=== PATIENT | female | born 1960 | race African-American/Black ===

== ENCOUNTER 2017-09-24 15:49 | Emergency (ER) | payer MEDICARE ==
[~2017-09-24] VITALS: Ht 162.6 cm; Wt 90.0 kg
[2017-09-24] MEDS ORDERED: NAPROXEN 500MG TABLET PO ONE (19:15)
[2017-09-24] MEDS ORDERED: KETOROLAC 30MG/ML VIAL IM ONE (20:15)
[2017-09-24 20:42] VITALS: BP 129/99
== END 2017-09-24 20:41 | disposition home or self-care (01) ==
LOC: ER 16:21
DX: G89.29 Other chronic pain (principal); M54.5 Low back pain; I10 Essential (primary) hypertension; F31.9 Bipolar disorder, unspecified
CPT/HCPCS: 96372; 99283; J1885